=== PATIENT | female | born 1980 | race Caucasian/White ===

== ENCOUNTER 2017-05-13 11:03 | Emergency (ER) | payer OTHER ==
--- NOTE | ~2017-05-13 | ER ---
PATIENT'S NAME: [facility] AGE: 36 Y [address] ROOM: [place] [address] LOCATION: [facility] ADMIT DATE: 05/13/2017 ER/Outpatient Report DISCHARGE DATE: 05/13/2017 FAMILY PHYSICIAN: PHYSICIAN, NO ATTENDING PHYSICIAN: Moi Weems TIME OF ARRIVAL: 1103 hours. TIME OF EVALUATION: 1103 hours. CHIEF COMPLAINT: Bug bite on right eye. HISTORY OF PRESENT ILLNESS: This is a 36-year-old female who presented to the ED following bug bite. She reports that she was outside yesterday evening when she received numerous mosquito bites. She then woke up this morning and noticed that her right eye has been exceptionally swollen. She denies any visual changes from the eye. No pain with eye movement. Additionally, she denies fever, chills, lightheadedness, shortness of breath, chest pain, nausea or vomiting. PAST MEDICAL HISTORY: Unremarkable. MEDICATIONS: P.r.n. Klonopin. ALLERGIES: DRUG ALLERGIES INCLUDE PENICILLIN AND SULFA. SOCIAL HISTORY: She is from [place] originally. She drinks approximately three drinks per week. No tobacco, no illicit drug use. REVIEW OF SYSTEMS: Reviewed and are as per HPI. PHYSICAL EXAMINATION: VITAL SIGNS: Blood pressure 129/96, pulse 91, respirations 18, temp 98.6, oxygen saturation 96% on room air. GENERAL: This is a 36-year-old female appearing stated age. No apparent distress. Alert and oriented x3. HEENT: Noted to have significant right upper eyelid edema. No erythema or PATIENT'S NAME: [facility] AGE: 36 Y [address] ROOM: [place] [address] LOCATION: [facility] ADMIT DATE: 05/13/2017 ER/Outpatient Report DISCHARGE DATE: 05/13/2017 FAMILY PHYSICIAN: PHYSICIAN, NO ATTENDING PHYSICIAN: Moi Weems fever to the eye. Extraocular muscles are intact. No pain with extraocular muscle movement. Normal visual acuity using vision card. Nose, nasal airway is patent. Mouth, moist mucous membranes. NECK: No adenopathy noted. CARDIOVASCULAR: Regular rate and rhythm. LUNGS: Clear to auscultation bilaterally. SKIN: Numerous bug bites noted on the extremities. IMPRESSION: Orbital edema secondary to bug bite. EMERGENCY ROOM COURSE: Discussed with patient treatment using Benadryl as needed every 4 to 6 hours for edema and itching, cool compresses as well. Discussed return precautions for secondary infection including fever, chills, erythema to the eye, drainage, warmth of the eye. She was instructed to follow up with her primary care provider. She was in agreement with the assessment and plan and understands. DICK DECKER MD FOR DO DAVID JACKSON/carine /[id number] ATTENDING ADDENDUM: I saw and evaluated the patient. I have discussed with the resident, agree with the resident's findings and plan and agree with the documented note above. EMANUEL JACKSON d: 05/13/17 [facility] t: [id number], OUTPATIENT REPORT
== END 2017-05-13 11:20 | disposition disaster alternative care site (69) ==
LOC: GMED 11:03
DX: S00.261A Insect bite (nonvenomous) of right eyelid and periocular area, initial encounter (principal); H05.221 Edema of right orbit; Z88.0 Allergy status to penicillin; Z88.2 Allergy status to sulfonamides; W57.XXXA Bitten or stung by nonvenomous insect and other nonvenomous arthropods, initial encounter